=== PATIENT | male | born 1950 | race Caucasian/White ===

== ENCOUNTER 2023-04-09 06:42 | Day surgery (SDC) | payer MEDICARE, OTHER, SELFPAY ==
[2023-04-09] VITALS (7 sets, daily range): BP systolic 80–128; BP diastolic 52–80; PULSE 64–114; RESP 15–21; TEMP 36.1–36.7; O2SAT 90–98; BMI 30.1
--- NOTE | 2023-04-09 | PATH_ITS ---
[facility] Accession Number: [id number] No. of containers..01 Tissue . 01 Material submitted: . rectosigmoid junction - RECTO-SIGMOID POLYP . 01 Diagnosis: Rectosigmoid Colon Polyp: Tubular adenoma. MRV 04/17/2023 1638 Local . 01 Electronically signed: . Calvin Smith MD, PhD, Pathologist NPI- [id number] . 01 Gross description: . RECTO-SIGMOID POLYP: Received in formalin is 1 fragment(s) of de jesus, soft tissue measuring 0.5 x 0.4 x 0.4 cm submitted entirely in 1 cassette(s) /ROSAMARIA 04/10/2023 1851 Local . 01 Pathologist provided ICD-10: D12.7 . 01 CPT . 310751 Specimen Comment: A courtesy copy of this report has been sent to [phone] Performed at: 01 [facility] [address] [place] [address], [place], [place] [id number] MD Colin Almonte MD Phone: [phone]
[2023-04-09] MEDS: LACTATED RINGERS 1,000 ML 150 ML IV (07:26)
--- NOTE | 2023-04-09 07:28 | SUR.PREOP ---
Kike MURRAY notified of sinus tachycardia and no new orders given
--- NOTE | 2023-04-09 07:57 | PM.HP.1 ---
History of Present Illness History of Present Illness Date Patient Seen: 04/09/23 Time Patient Seen: 07:57 Chief complaint: Colonoscopy Narrative: Here for colon cancer screening today. He reports a negative exam 11 years ago. PENDING SALE TO [facility] Social History household members: spouse Smoking Status: Never smoker alcohol intake: current Meds Home Medications and Allergies Home Medications Medication Instructions Recorded Confirmed Type allopurinol 300 mg tablet 300 mg PO DAILY 04/09/23 04/09/23 History amlodipine 10 mg tablet 10 mg PO DAILY 04/09/23 04/09/23 History lisinopril 40 mg tablet 40 mg PO DAILY 04/09/23 04/09/23 History metoprolol succinate 100 mg 100 mg PO DAILY 04/09/23 04/09/23 History tablet,extended release 24 hr simvastatin 20 mg tablet 20 mg PO ONCE PM 04/09/23 04/09/23 History Allergies Allergy/AdvReac Type Severity Reaction Status Date / Time No Known Drug Allergies Allergy Verified 04/09/23 07:27 Review of Systems Review of Systems ROS: Yes All systems reviewed with the patient and are negative except as otherwise documented Exam Vital Signs (past 8 hours): - 04/09/23 07:17 Temperature 97.2 F L Pulse Rate 114 H Respiratory Rate 17 Blood Pressure 113/80 Pulse Oximetry 98 Oxygen Delivery Method Room Air Oxygen Delivery Method Room Air Const General: cooperative HENMT Head: normal to inspection Eyes General: appearance normal, both eyes and all related structures Neck Neck: normal visual inspection Chest Chest: normal inspection of the chest Resp Effort & Inspection: normal respiratory effort Cardio Rate: regular rate GI Inspection: normal to inspection Skin General: no rashes or lesions noted Neuro General: patient alert and patient awake Extrem General: normal to inspection and no pedal edema Psych Appearance: grossly normal Assessment & Plan Assessment & Plan narrative: 73-year-old male here for colon cancer screening. Colonoscopy is pursued today.
--- NOTE | 2023-04-09 07:58 | PM.PREOP ---
Pre-operative Note Interval Note History & Physical reviewed/Exam performed by Physician: Yes Changes to H&P: No ASA Class (for procedural sedation): II
--- NOTE | 2023-04-09 08:23 | PM.OP.COLON ---
Operative Date/Time/Diagnoses Date of procedure: 04/09/23 Time of procedure: 08:23 Pre-op diagnosis: Colon cancer screening Post-op diagnosis: same Procedure & Clinicians Study performed: Colonoscopy with hot snare polypectomy Same procedure as scheduled: Yes Indications: Colon cancer screening. Surgeon: Adiel Will Procedure Notes SCOAP/Timeout: Done Procedure in detail: After the risks and benefits were explained, written and verbal informed consent was obtained. The patient was brought into the procedure room and placed into the left lateral decubitus position. Please see anesthesia notes for sedation details. Digital rectal examination was accomplished. The scope was introduced into the patient and advanced under direct visualization to the cecum as identified by the appendiceal orifice and ileocecal valve. The scope was slowly withdrawn to carefully examine the mucosa for any defects or lesions. Comprehensive imaging was accomplished throughout the rectum including the dentate line. The colon was decompressed, the scope was then removed from the patient who tolerated the procedure well. Adult colonoscope Bowel prep adequate Scope withdrawal time: 10 minutes Sedation minutes: 21 Complications: none Impression: Patient had grade 2-3 nonthrombosed nonbleeding hemorrhoids. There were some scattered diverticula in both the right and left colon. In the rectosigmoid region there was a partially pedunculated 6-7 mm polyp removed with hot snare. No significant additional pathology was appreciated throughout. Endoscopic diagnosis 1. Colon polyp 2. Diverticulosis 3. Grade 2-3 hemorrhoids Post-procedure Plan for aftercare: 1. Await histopathology. 2. Repeat colonoscopy can/should be considered for 5-7 years if this polyp is adenomatous Disposition: PACU
== END 2023-04-09 09:18 | disposition home or self-care (01) ==
PROVIDERS: Referring Provider Internal Medicine Gastroenterology; Visit Provider Internal Medicine Gastroenterology
PROC: 0DJD8ZZ Inspection of Lower Intestinal Tract, Via Natural or Artificial Opening Endoscopic (ICD-10-PCS; CPT 45378; principal; 2023-04-09 08:00)
DX: Z12.11 Encounter for screening for malignant neoplasm of colon (principal); K57.30 Diverticulosis of large intestine without perforation or abscess without bleeding; K64.2 Third degree hemorrhoids; D12.7 Benign neoplasm of rectosigmoid junction
CPT/HCPCS: 45385; J2704

== ENCOUNTER → 2024-02-06 07:04 | Outpatient (CLI) | payer MEDICARE, OTHER, SELFPAY ==
[2024-02-06 09:21] LABS: Add Manual Diff / Slide Review NO; Basophils Absolute Auto 100 /uL (0-100); Basophils Percent Auto 1.1 % (0-2); Eosinophils Absolute Auto 200 /uL (0-450); Eosinophils Percent Auto 3.3 % (2-4); Hematocrit 41.7 % (41-53); Hemoglobin 14.3 g/dL (13.5-17.5); Lymphocytes Absolute Auto 800 /uL (1100-4500); Lymphocytes Percent Auto 14.4 % (25-40); Mean Corpuscular HGB Conc 34.2 % (30-36); Mean Corpuscular Hemoglobin 33.1 PG (26-34); Mean Corpuscular Volume 96.8 fL (80-100); Monocytes Absolute Auto 500 /uL (0-900); Monocytes Percent Auto 9.8 % (3-14); Neutrophils Absolute Auto 3700 /uL (1500-7000); Neutrophils Percent Auto 71.4 % (50-75); Platelet Count 182 X10^3/uL (150-400); Red Blood Cell Count 4.31 X10^6/uL (4.5-5.9); Red Cell Distribution Width 13.6 % (11.6-14.8); White Blood Cell Count 5.2 X10^3/uL (4.5-11.0)
[2024-02-06 09:42] LABS: Alanine Aminotransferase 44 IU/L (<50); Albumin 4.5 g/dL (3.5-5.0); Albumin Globulin Ratio 1.7 (1.0-2.8); Alkaline Phosphatase 68 U/L (38-126); Aspartate Aminotransferase 34 IU/L (17-59); BUN Creatinine Ratio 14.3 (6-22); Blood Urea Nitrogen 18 mg/dL (9-20); Calcium 9.8 mg/dL (8.4-10.2); Carbon Dioxide 24 mmol/L (22-32); Chloride 107 mmol/L (98-107); Cholesterol 147 mg/dL (140-199); Estimated Glomerular Filt Rate 59 mL/min (>60); Globulin 2.6 g/dL (1.7-4.1); Glucose 111 mg/dL (80-110); HDL Cholesterol 62 mg/dL (40-60); HEMOLYSIS < 15 (0-50); LDL Cholesterol Calculated 50 mg/dL (<100); Sodium 141 mmol/L (137-145); Total Protein 7.1 g/dL (6.3-8.2); Triglycerides 177 mg/dL (35-150); Uric Acid 4.5 mg/dL (3.5-8.5)
[2024-02-07 16:13] LABS: PSA Free % 24.3 % (.); PSA, Total 2.1 ng/mL (0.0-4.0)
== END ==
PROVIDERS: PCP Family Medicine; Referring Provider Family Medicine; Visit Provider Family Medicine
DX: Z00.00 Encounter for general adult medical examination without abnormal findings (principal); M10.9 Gout, unspecified; E78.5 Hyperlipidemia, unspecified; I10 Essential (primary) hypertension
CPT/HCPCS: 36415; 80053; 80061; 84153; 84154; 84550; 85025

== ENCOUNTER → 2025-02-12 07:06 | Outpatient (CLI) | payer MEDICARE, OTHER, SELFPAY ==
[2025-02-12 08:47] LABS: Hemoglobin A1C% w Est Avg Glu 5.5 % (4.0-6.0)
[2025-02-12 09:17] LABS: Alanine Aminotransferase 56 IU/L (<50); Albumin 4.7 g/dL (3.5-5.0); Albumin Globulin Ratio 1.7 (1.0-2.8); Alkaline Phosphatase 65 U/L (38-126); Blood Urea Nitrogen 22 mg/dL (9-20); Calcium 9.7 mg/dL (8.4-10.2); Carbon Dioxide 24 mmol/L (22-32); Chloride 104 mmol/L (98-107); Cholesterol 155 mg/dL (140-199); Estimated Glomerular Filt Rate > 60 mL/min (>60); Globulin 2.8 g/dL (1.7-4.1); Glucose 118 mg/dL (70-99); HDL Cholesterol 79 mg/dL (40-60); HEMOLYSIS < 15 (0-50); Potassium 4.1 mmol/L (3.4-5.1); Sodium 140 mmol/L (137-145); Total Protein 7.5 g/dL (6.3-8.2); Triglycerides 146 mg/dL (35-150); Uric Acid 5.2 mg/dL (3.5-8.5)
== END ==
PROVIDERS: PCP Family Medicine; Referring Provider Family Medicine; Visit Provider Family Medicine
DX: R73.03 Prediabetes (principal); E78.00 Pure hypercholesterolemia, unspecified; Z12.5 Encounter for screening for malignant neoplasm of prostate; M1A.09X0 Idiopathic chronic gout, multiple sites, without tophus (tophi); I10 Essential (primary) hypertension
CPT/HCPCS: 36415; 80053; 80061; 83036; 84550; G0103